=== PATIENT | male | born 1960 | race African-American/Black ===

== ENCOUNTER 2020-04-19 09:16 | Day surgery (SDC) | payer OTHER, SELFPAY ==
[~2020-04-19] VITALS: Ht 182.9 cm; Wt 93.0 kg
[2020-04-19] MEDS ORDERED: MIDAZOLAM 2 MG/2 ML VIAL ONE (13:40)
[2020-04-19] MEDS ORDERED: fentaNYL citrate 0.05 MG/ML VIAL ONE (13:40)
[2020-04-19] MEDS ORDERED: LIDOCAINE 2% 100 MG/5 ML UJET TP ONE (13:40)
[2020-04-19] MEDS ORDERED: fentaNYL citrate 0.05 MG/ML VIAL IVP ONE (14:35)
== END 2020-04-19 14:50 | disposition home or self-care (01) ==
LOC: MFCC 09:16 → MDS 09:16
PROVIDERS: ATTEND Internal Medicine Gastroenterology
DX: Z12.11 Encounter for screening for malignant neoplasm of colon (principal); D12.8 Benign neoplasm of rectum; I10 Essential (primary) hypertension; E78.5 Hyperlipidemia, unspecified; E11.9 Type 2 diabetes mellitus without complications; Z98.890 Other specified postprocedural states; Z79.899 Other long term (current) drug therapy; Z11.59 Encounter for screening for other viral diseases
CPT/HCPCS: 45385; J3010; U0003; J2250